=== PATIENT | male | born 1980 | race Caucasian/White ===

== ENCOUNTER 2017-06-08 17:37 | Inpatient (IN) | payer MEDICAID ==
[~2017-06-08] VITALS: Ht 162.6 cm; Wt 95.9 kg
[2017-06-08] MEDS ORDERED: AMOX1TAB16 PO (17:44)
[2017-06-08] MEDS ORDERED: MethylPREDNISolone SOD SUCC 125 MG/2 ML VIAL IVP ONE ×2 (18:45→21:45)
[2017-06-08] MEDS ORDERED: ALBUTEROL SULFATE 5 MG/ML 20 ML NEB SOLN [BULK] NEB ONE (18:45)
[2017-06-08] MEDS ORDERED: IPRATROPIUM BROMIDE 0.5 MG/2.5 ML NEB SOLUTION NEB ONE (18:45)
[2017-06-08] MEDS ORDERED: 0.9% SODIUM CHLORIDE 5 ML NEB SOLUTION NEB ONE (18:50)
[2017-06-08 18:58] LABS: BASOPHILS % (AUTO) 0.3 % (0.0-2.0); EOSINOPHILS % (AUTO) 2.3 % (1.0-6.0); HEMATOCRIT 43.4 % (41-53); HEMOGLOBIN 14.9 g/dL (13.5-17.5); LYMPHOCYTES # (AUTO) 2.4 K/uL (1.0-4.8); LYMPHOCYTES % (AUTO) 21.2 % (22.0-44.0); MEAN CORPUSCULAR HEMOGLOBIN 29.4 pg (26.0-34.0); MEAN CORPUSCULAR HGB CONC 34.2 G/dL (31.0-37.0); MEAN CORPUSCULAR VOLUME 86 fL (80-100); MONOCYTES % (AUTO) 8.7 % (2.0-9.0); NEUTROPHILS # (AUTO) 7.7 K/uL (1.8-7.7); NEUTROPHILS % (AUTO) 67.5 % (40.0-70.0); PLATELET COUNT (AUTO) 316 K/uL (150-450); RED BLOOD CELL COUNT(AUTO) 5.05 MIL/uL (4.50-5.90); RED CELL DISTRIBUTION WIDTH 13.2 % (11.5-14.5); WHITE BLOOD COUNT (AUTO) 11.4 K/uL (4.5-11.0)
[2017-06-08] MEDS ORDERED: SODIUM CHLORIDE 0.9% 1,000 ML IV ONE (19:00)
[2017-06-08 19:01] LABS: ANION GAP 6 mmol/L (8-16); CALCIUM, TOTAL 9.5 mg/dL (8.8-10.5); CARBON DIOXIDE 31 mmol/L (22-29); CHLORIDE 103 mmol/L (98-107); CREATININE 0.85 mg/dL (0.60-1.30); GLOMERULAR FILTR. RATE CALC > 60 mL/min (>60); POTASSIUM 4.4 mmol/L (3.5-5.1); SODIUM SERUM 140 mmol/L (136-145); UREA NITROGEN, BLOOD 13 mg/dL (7-18)
[2017-06-08 19:07] LABS: ALANINE AMINOTRANSFERASE 29 U/L (12-78); ALBUMIN 3.5 g/dL (3.4-5.0); ASPARTATE AMINOTRANSFERASE 20 U/L (15-37); BILIRUBIN,TOTAL 0.8 mg/dL (0.1-1.0); TOTAL PROTEIN, SERUM 8.9 g/dL (6.4-8.2)
[2017-06-08] MEDS ORDERED: CefTRIAXone 1 GM/DEXTROSE 50 ML IV ONE (21:00)
[2017-06-08] MEDS ORDERED: AZITHROMYCIN 500 MG/NS 250 ML IV ONE (21:00)
[2017-06-08] MEDS ORDERED: IOVERSOL 350 MG/ML 100 ML VIAL ONE (21:07)
[2017-06-08] MEDS ORDERED: SODIUM CHLORIDE 0.9% 100 ML ONE (21:08)
[2017-06-08 21:11] LABS: ABG A-A DIFF O2 183.2 mmHg (10-20.0); ABG BASE EXCESS 0.9 mmol/L (-2.0-3.0); ABG HCO3 24.9 mmol/L (22.0-26.0); ABG OXYHEMOGLOBIN 86.7 % (94.0-100.0); ABG PCO2 41 mmHg (35-45); ABG PH 7.408 (7.350-7.450); TEMPERATURE, FAHRENHEIT, BG 98.5 FAHREN (96.0-98.6)
[2017-06-08 21:13] LABS: ALLEN TEST, BLOOD GAS POS
[2017-06-08] MEDS ORDERED: 0.9% SODIUM CHLORIDE 10 ML SYRINGE IVP PRN (21:30)
[2017-06-08] MEDS ORDERED: ACETAMINOPHEN 325 MG TABLET PO PRN (21:30)
[2017-06-08] MEDS ORDERED: DiphenhydrAMINE HCL 50 MG/ML VIAL IVP ONE (21:45)
[2017-06-08 23:30] VITALS: BP 119/80
[2017-06-09] VITALS (7 sets, daily range): BP systolic 108–127; BP diastolic 61–87
[2017-06-09] MEDS ORDERED: PNEUMOCOCCAL VACCINE POLYVALENT 0.5 ML VIAL [PPSV23] IM ONE (00:15)
[2017-06-09] MEDS ORDERED: MAGNESIUM HYDROXIDE SUSPENSION 30 ML UDCUP PO PRN (00:45)
[2017-06-09] MEDS ORDERED: OxyCODONE HCL/ACETAMINOPHEN 5-325 MG TABLET PO PRN ×2 (00:45)
[2017-06-09] MEDS ORDERED: 0.9% SODIUM CHLORIDE 10 ML SYRINGE IVP PRN (00:45)
[2017-06-09] MEDS: DOCUSATE SODIUM 100 MG CAPSULE PO SCH ×3 (00:45→20:24)
[2017-06-09] MEDS ORDERED: ACETAMINOPHEN 325 MG TABLET PO PRN (00:45)
[2017-06-09] MEDS: MethylPREDNISolone SOD SUCC 125 MG/2 ML VIAL IVP SCH ×4 (01:36→23:26)
[2017-06-09] MEDS: PANTOPRAZOLE SODIUM 40 MG/VIAL IVP SCH (08:26)
[2017-06-09] MEDS: DiphenhydrAMINE HCL 25 MG CAPSULE PO SCH ×4 (08:27→20:24)
[2017-06-09] MEDS: HEPARIN SODIUM,PORCINE 5,000 UNITS/ML VIAL SQ SCH ×2 (16:27→23:26)
[2017-06-09] MEDS ORDERED: SODIUM CHLORIDE 0.9% 250 ML IV ONE (20:15)
[2017-06-09] MEDS: CefTRIAXone 1 GM/DEXTROSE 50 ML IV SCH (20:23)
[2017-06-09] MEDS: LEVOFLOXACIN 500 MG/D5% WATER 100 ML IV SCH (21:56)
[2017-06-09] MEDS ORDERED: SODIUM CHLORIDE 3% 15 ML NEB SOLUTION NEB ONE (23:16)
[2017-06-10 00:09] VITALS: BP 124/71
[2017-06-10 04:27] VITALS: BP 120/78
[2017-06-10 06:27] LABS: ANION GAP 10 mmol/L (8-16); CALCIUM, TOTAL 8.8 mg/dL (8.8-10.5); CARBON DIOXIDE 26 mmol/L (22-29); CHLORIDE 104 mmol/L (98-107); CREATININE 0.85 mg/dL (0.60-1.30); GLOMERULAR FILTR. RATE CALC > 60 mL/min (>60); POTASSIUM 4.4 mmol/L (3.5-5.1); SODIUM SERUM 140 mmol/L (136-145); UREA NITROGEN, BLOOD 19 mg/dL (7-18)
[2017-06-10 07:10] LABS: BASOPHILS % (AUTO) 0.2 % (0.0-2.0); EOSINOPHILS % (AUTO) 0 % (1.0-6.0); HEMOGLOBIN 12.8 g/dL (13.5-17.5); LYMPHOCYTES # (AUTO) 1.8 K/uL (1.0-4.8); LYMPHOCYTES % (AUTO) 7.7 % (22.0-44.0); MEAN CORPUSCULAR HEMOGLOBIN 29.2 pg (26.0-34.0); MEAN CORPUSCULAR HGB CONC 33.7 G/dL (31.0-37.0); MEAN CORPUSCULAR VOLUME 87 fL (80-100); MONOCYTES # (AUTO) 0.8 K/uL (0.1-1.0); MONOCYTES % (AUTO) 3.6 % (2.0-9.0); NEUTROPHILS # (AUTO) 20.6 K/uL (1.8-7.7); PLATELET COUNT (AUTO) 350 K/uL (150-450); RED BLOOD CELL COUNT(AUTO) 4.38 MIL/uL (4.50-5.90); RED CELL DISTRIBUTION WIDTH 13.2 % (11.5-14.5); WHITE BLOOD COUNT (AUTO) 23.3 K/uL (4.5-11.0)
[2017-06-10 07:12] LABS: NEUTROPHILS % (AUTO) 88.5 % (40.0-70.0)
[2017-06-10 07:39] VITALS: BP 123/76
[2017-06-10 08:22] LABS: RBC MORPHOLOGY COMMENT NORMAL RBC MORPH
[2017-06-10 08:26] LABS: PROCALCITONIN (PCT) < 0.05 ng/mL (<0.50)
[2017-06-10] MEDS: PANTOPRAZOLE SODIUM 40 MG/VIAL IVP SCH (08:39)
[2017-06-10] MEDS: DiphenhydrAMINE HCL 25 MG CAPSULE PO SCH ×4 (08:39→20:55)
[2017-06-10] MEDS: MethylPREDNISolone SOD SUCC 125 MG/2 ML VIAL IVP SCH ×3 (08:40→23:54)
[2017-06-10] MEDS: HEPARIN SODIUM,PORCINE 5,000 UNITS/ML VIAL SQ SCH ×3 (08:40→23:54)
[2017-06-10] MEDS: DOCUSATE SODIUM 100 MG CAPSULE PO SCH ×2 (08:40→20:55)
[2017-06-10 09:44] LABS: INFLUENZA TYPE B NEGATIVE FOR TYPE B (NEGATIVE)
[2017-06-10 11:49] VITALS: BP 118/73
[2017-06-10 15:23] VITALS: BP 118/74
[2017-06-10 19:56] VITALS: BP 124/83
[2017-06-10] MEDS: CefTRIAXone 1 GM/DEXTROSE 50 ML IV SCH (20:48)
[2017-06-10] MEDS: LEVOFLOXACIN 500 MG/D5% WATER 100 ML IV SCH (22:17)
[2017-06-11 00:04] VITALS: BP 120/77
[2017-06-11] MEDS ORDERED: METOPROLOL SUCCINATE 25 MG ER TABLET PO ONE (03:30)
[2017-06-11 05:02] VITALS: BP 117/68
[2017-06-11 07:49] VITALS: BP 110/73
[2017-06-11] MEDS: DiphenhydrAMINE HCL 25 MG CAPSULE PO SCH ×4 (09:00→20:55)
[2017-06-11] MEDS: DOCUSATE SODIUM 100 MG CAPSULE PO SCH ×2 (09:00→20:41)
[2017-06-11] MEDS ORDERED: SODIUM CHLORIDE 0.9% 100 ML ONE (09:15)
[2017-06-11] MEDS: MethylPREDNISolone SOD SUCC 125 MG/2 ML VIAL IVP SCH ×3 (09:24→23:30)
[2017-06-11] MEDS: HEPARIN SODIUM,PORCINE 5,000 UNITS/ML VIAL SQ SCH ×3 (09:25→23:31)
[2017-06-11] MEDS: PANTOPRAZOLE SODIUM 40 MG/VIAL IVP SCH (09:26)
[2017-06-11] MEDS: DILTIAZEM HCL 125 MG in DEXTROSE 5%-WATER 100 ML IV SCH ×2 (09:56→21:00)
[2017-06-11 11:17] VITALS: BP 119/63
[2017-06-11 13:57] LABS: ORGANISM ID Not indicated.
[2017-06-11] MEDS ORDERED: METOPROLOL TARTRATE 25 MG TABLET PO SCH (15:00)
[2017-06-11 15:38] VITALS: BP 129/64
[2017-06-11 20:06] VITALS: BP 121/75
[2017-06-11] MEDS: CefTRIAXone 1 GM/DEXTROSE 50 ML IV SCH (20:40)
[2017-06-11] MEDS: METOPROLOL TARTRATE 25 MG TABLET PO SCH (20:41)
[2017-06-11] MEDS ORDERED: METOPROLOL SUCCINATE 25 MG ER TABLET PO SCH (21:00)
[2017-06-11 21:11] LABS: MYCOPLASMA AB IGG 4510 U/mL (0-99)
[2017-06-11] MEDS: AZITHROMYCIN 500 MG/NS 250 ML IV SCH (23:30)
[2017-06-12] VITALS (7 sets, daily range): BP systolic 119–135; BP diastolic 65–84
[2017-06-12] MEDS: MethylPREDNISolone SOD SUCC 125 MG/2 ML VIAL IVP SCH (07:48)
[2017-06-12] MEDS: HEPARIN SODIUM,PORCINE 5,000 UNITS/ML VIAL SQ SCH ×3 (07:49→23:28)
[2017-06-12] MEDS: PANTOPRAZOLE SODIUM 40 MG/VIAL IVP SCH (07:50)
[2017-06-12] MEDS: METOPROLOL TARTRATE 25 MG TABLET PO SCH ×2 (07:52→20:12)
[2017-06-12] MEDS: DOCUSATE SODIUM 100 MG CAPSULE PO SCH ×2 (07:52→20:20)
[2017-06-12] MEDS: ASPIRIN 81 MG CHEWABLE TABLET PO SCH (07:53)
[2017-06-12] MEDS: DiphenhydrAMINE HCL 25 MG CAPSULE PO SCH ×4 (08:01→20:21)
[2017-06-12] MEDS: MethylPREDNISolone SOD SUCC 40 MG/ML VIAL IVP SCH ×2 (16:07→23:27)
[2017-06-12] MEDS ORDERED: SODIUM CHLORIDE 0.9% 250 ML IV ONE (19:42)
[2017-06-12] MEDS: CefTRIAXone 1 GM/DEXTROSE 50 ML IV SCH (20:12)
[2017-06-12] MEDS: AZITHROMYCIN 500 MG/NS 250 ML IV SCH (22:15)
[2017-06-12] MEDS: DOXYCYCLINE 100 MG in DEXTROSE 5%-WATER 100 ML IV SCH (23:27)
[2017-06-13 05:21] VITALS: BP 129/77
[2017-06-13 07:12] LABS: ALANINE AMINOTRANSFERASE 49 U/L (12-78); ALBUMIN 2.9 g/dL (3.4-5.0); ANION GAP 11 mmol/L (8-16); ASPARTATE AMINOTRANSFERASE 14 U/L (15-37); BILIRUBIN,TOTAL 0.4 mg/dL (0.1-1.0); CALCIUM, TOTAL 8.7 mg/dL (8.8-10.5); CARBON DIOXIDE 25 mmol/L (22-29); CHLORIDE 105 mmol/L (98-107); CREATININE 0.89 mg/dL (0.60-1.30); GLOMERULAR FILTR. RATE CALC > 60 mL/min (>60); POTASSIUM 4.6 mmol/L (3.5-5.1); SODIUM SERUM 141 mmol/L (136-145); TOTAL PROTEIN, SERUM 6.5 g/dL (6.4-8.2); UREA NITROGEN, BLOOD 21 mg/dL (7-18)
[2017-06-13 07:57] VITALS: BP 138/77
[2017-06-13 08:12] LABS: BASOPHILS % (AUTO) 0.3 % (0.0-2.0); EOSINOPHILS % (AUTO) 0 % (1.0-6.0); HEMATOCRIT 40.5 % (41-53); HEMOGLOBIN 13.7 g/dL (13.5-17.5); LYMPHOCYTES # (AUTO) 1.6 K/uL (1.0-4.8); LYMPHOCYTES % (AUTO) 7.4 % (22.0-44.0); MEAN CORPUSCULAR HGB CONC 33.8 G/dL (31.0-37.0); MEAN CORPUSCULAR VOLUME 86 fL (80-100); MONOCYTES # (AUTO) 0.8 K/uL (0.1-1.0); MONOCYTES % (AUTO) 3.8 % (2.0-9.0); NEUTROPHILS # (AUTO) 18.6 K/uL (1.8-7.7); PLATELET COUNT (AUTO) 348 K/uL (150-450); RED BLOOD CELL COUNT(AUTO) 4.72 MIL/uL (4.50-5.90)
[2017-06-13 08:15] LABS: NEUTROPHILS % (AUTO) 88.5 % (40.0-70.0)
[2017-06-13] MEDS: ASPIRIN 81 MG CHEWABLE TABLET PO SCH (08:48)
[2017-06-13] MEDS: METOPROLOL TARTRATE 25 MG TABLET PO SCH ×2 (08:48→20:23)
[2017-06-13] MEDS: PANTOPRAZOLE SODIUM 40 MG/VIAL IVP SCH (08:48)
[2017-06-13] MEDS: HEPARIN SODIUM,PORCINE 5,000 UNITS/ML VIAL SQ SCH ×3 (08:49→23:26)
[2017-06-13] MEDS: MethylPREDNISolone SOD SUCC 40 MG/ML VIAL IVP SCH ×3 (08:50→23:26)
[2017-06-13] MEDS: DiphenhydrAMINE HCL 25 MG CAPSULE PO SCH ×4 (08:50→20:30)
[2017-06-13] MEDS: DOCUSATE SODIUM 100 MG CAPSULE PO SCH ×2 (08:50→20:30)
[2017-06-13 11:49] VITALS: BP 130/74
[2017-06-13] MEDS: DOXYCYCLINE 100 MG in DEXTROSE 5%-WATER 100 ML IV SCH ×2 (12:44→23:25)
[2017-06-13 15:59] VITALS: BP 154/75
[2017-06-13 19:29] VITALS: BP 133/74
[2017-06-13] MEDS: CefTRIAXone 1 GM/DEXTROSE 50 ML IV SCH (20:23)
[2017-06-13] MEDS: AZITHROMYCIN 500 MG/NS 250 ML IV SCH (22:01)
[2017-06-14 00:08] VITALS: BP 123/72
[2017-06-14 04:14] VITALS: BP 115/69
[2017-06-14 07:23] VITALS: BP 137/81
[2017-06-14] MEDS: MethylPREDNISolone SOD SUCC 40 MG/ML VIAL IVP SCH (08:37)
[2017-06-14] MEDS: HEPARIN SODIUM,PORCINE 5,000 UNITS/ML VIAL SQ SCH (08:38)
[2017-06-14] MEDS: DiphenhydrAMINE HCL 25 MG CAPSULE PO SCH (08:38)
[2017-06-14] MEDS: METOPROLOL TARTRATE 25 MG TABLET PO SCH (08:38)
[2017-06-14] MEDS: ASPIRIN 81 MG CHEWABLE TABLET PO SCH (08:38)
[2017-06-14] MEDS: DOCUSATE SODIUM 100 MG CAPSULE PO SCH (08:38)
[2017-06-14] MEDS: PANTOPRAZOLE SODIUM 40 MG/VIAL IVP SCH (08:38)
[2017-06-14] MEDS ORDERED: PredniSONE 20 MG TABLET PO SCH (09:00)
[2017-06-14] MEDS ORDERED: DOXY150T PO (10:34)
[2017-06-14] MEDS ORDERED: METO25 PO (10:34)
[2017-06-14] MEDS ORDERED: PRED5TAB PO (10:34)
[2017-06-14] MEDS ORDERED: PRED10TA3 PO (10:34)
[2017-06-14] MEDS ORDERED: ASPI81 PO (10:34)
[2017-06-14] MEDS ORDERED: PRED20 PO (10:34)
[2017-06-16 17:10] LABS: COCCIDIOIDES BY CF(UCDAVIS) Negative; COCCIDIOIDES IMMUNODIF-UCDAVIS Negative; COCCIDIOIDES INTERP.(UCDAVIS) Comment:
== END 2017-06-14 11:40 | disposition home or self-care (01) | DRG 720 ==
LOC: EMS 17:39 → ICU 22:19 → 6N 22:19 → 5N 06-09 14:00
PROVIDERS: ADMIT Internal Medicine; ATTEND Internal Medicine
DX: A41.9 Sepsis, unspecified organism (principal); J96.01 Acute respiratory failure with hypoxia; J15.7 Pneumonia due to Mycoplasma pneumoniae; I48.91 Unspecified atrial fibrillation; E66.9 Obesity, unspecified; I10 Essential (primary) hypertension; T38.0X5A Adverse effect of glucocorticoids and synthetic analogues, initial encounter; Z91.041 Radiographic dye allergy status; Z68.36 Body mass index [BMI] 36.0-36.9, adult
CPT/HCPCS: 71020; 71275; 82805; 83735; 84145; 84443; 85379; 86403; 86480; 87015; 87040; 87070; 87081; 87101; 87106; 87205; 87252; 87449; 87798; 87804; 87899; 90471; 93005; 93306; 94640; 94644; 96361; 96365; 96367; 96375; 99291; C9113; G0238; J0456; J0696; J1200; J1644; J1956; J2920; J2930; J3490; J7030; J7050; J7060